=== PATIENT | female | born 1950 | race Native Hawaiian/Other Pacific Islander ===

== ENCOUNTER 2019-09-08 16:01 | Emergency (ER) | payer OTHER ==
[~2019-09-08] VITALS: Ht 142.2 cm; Wt 63.5 kg
[2019-09-08 19:35] VITALS: BP 155/60; TEMP 98.2
== END 2019-09-08 19:35 | disposition home or self-care (01) ==
LOC: ED 16:01
PROC: 08QPXZZ Repair Left Upper Eyelid, External Approach (ICD-10-PCS; principal; 2019-09-08)
DX: S00.83XA Contusion of other part of head, initial encounter (principal); S01.112A Laceration without foreign body of left eyelid and periocular area, initial encounter; S80.02XA Contusion of left knee, initial encounter; W10.8XXA Fall (on) (from) other stairs and steps, initial encounter; Y92.89 Other specified places as the place of occurrence of the external cause
CPT/HCPCS: 90715; 99283; J7040

== ENCOUNTER 2023-07-05 22:07 | Observation (INO) | payer OTHER ==
[~2023-07-05] VITALS: Ht 139.7 cm; Wt 52.8 kg
[2023-07-05 22:27] VITALS: BP 122/40; TEMP 97.8
[2023-07-05 22:54] VITALS: BP 116/45
[2023-07-05 23:28] VITALS: BP 101/39
[2023-07-06] VITALS (10 sets, daily range): BP systolic 123–158; BP diastolic 41–52; TEMP 97.4–98.6; Ht 139.7 cm; Wt 52.8 kg
[2023-07-06 00:35] LABS: POTASSIUM 5.5 mmol/L (3.6-5.2)
[2023-07-06 00:56] LABS: PLATELET COUNT 156 K/uL (152-353)
[2023-07-06 04:24] LABS: PLATELET COUNT 136 K/uL (152-353)
[2023-07-06 04:50] LABS: POTASSIUM 4.9 mmol/L (3.6-5.2)
[2023-07-06] MEDS ORDERED: CARV25TA PO (09:50)
[2023-07-06] MEDS ORDERED: HYDRALAZINE HY100 MG PO (09:51)
[2023-07-06] MEDS ORDERED: AMLODIPINE PO (11:58)
[2023-07-06] MEDS ORDERED: ASA LOW DOSE81 MG PO (11:59)
[2023-07-06] MEDS ORDERED: LIPITOR40 MG PO (12:00)
[2023-07-06] MEDS ORDERED: CELE200C2 PO (12:01)
[2023-07-06] MEDS ORDERED: AZEL137S NAS (12:01)
[2023-07-06] MEDS ORDERED: CITA20TA2 PO (12:02)
[2023-07-06] MEDS ORDERED: FURO40TA93 PO (12:03)
[2023-07-06] MEDS ORDERED: FLONASE AL50 MCG/ACT NAS (12:03)
[2023-07-06] MEDS ORDERED: GABA300C2 PO (12:04)
[2023-07-06] MEDS ORDERED: HYDR25TA60 PO (12:04)
[2023-07-06] MEDS ORDERED: HYDR-3182 PO (12:05)
[2023-07-06] MEDS ORDERED: COZAAR100 MG PO (12:05)
[2023-07-06] MEDS ORDERED: SPIRONOLACT25 MG PO (12:06)
[2023-07-06] MEDS ORDERED: TRAZ50TA36 PO (12:08)
[2023-07-06] MEDS ORDERED: LEVO0.0218 PO (12:13)
[2023-07-07] VITALS: BP 139/60; TEMP 98.4
[2023-07-07 03:54] VITALS: BP 128/52; TEMP 98.2
[2023-07-07 05:10] LABS: PLATELET COUNT 126 K/uL (152-353)
[2023-07-07 05:28] LABS: POTASSIUM 4.1 mmol/L (3.6-5.2)
[2023-07-07 07:52] VITALS: BP 174/72; TEMP 98.3
[2023-07-07 12:00] VITALS: BP 139/77; TEMP 98
[2023-07-07] MEDS ORDERED: COREG 6.25MG TAB PO (15:20)
[2023-07-07 16:00] VITALS: BP 133/60; BP 166/72; TEMP 99.1
== END 2023-07-07 17:16 | disposition home or self-care (01) ==
LOC: ED 22:07 → MED/SURG 07-06 01:35
PROVIDERS: Family Medicine; ADMIT Nurse Practitioner Family; ATTEND Internal Medicine
DX: E87.1 Hypo-osmolality and hyponatremia (principal); E87.5 Hyperkalemia; R42 Dizziness and giddiness; I65.21 Occlusion and stenosis of right carotid artery; R29.6 Repeated falls; E03.8 Other specified hypothyroidism; K21.9 Gastro-esophageal reflux disease without esophagitis; G62.89 Other specified polyneuropathies; F32.A Depression, unspecified; I50.9 Heart failure, unspecified; Z79.01 Long term (current) use of anticoagulants; I11.0 Hypertensive heart disease with heart failure; I71.40 Abdominal aortic aneurysm, without rupture, unspecified
CPT/HCPCS: 80048; 80053; 81002; 83735; 84443; 85027; 93005; 96360; 96361; 96374; 96375; 99221; 99284; G0378; J2310